=== PATIENT | female | born 1960 | race Caucasian/White ===

== ENCOUNTER 2017-01-19 18:03 | Emergency (ER) | payer OTHER ==
[~2017-01-19] VITALS: Ht 157.5 cm; Wt 107.3 kg
[2017-01-19 18:07] VITALS: BP 160/90; PULSE 76; RESP 16; TEMP 97.8; O2SAT 95
[2017-01-19] MEDS ORDERED: ASPI81CH7 CHEW (18:20)
[2017-01-19] MEDS ORDERED: METO50TA11 PO (18:20)
[2017-01-19] MEDS ORDERED: DEXAMETHASONE SOD PHOS 4 MG/ML VIAL IM ONE (18:30)
[2017-01-19] MEDS ORDERED: RESP: ALBUTEROL 2.5 MG/IPRATROPIUM 0.5 MG NEB (SCH) INH ONE (18:30)
--- NOTE | 2017-01-19 18:31 | PD ---
HPI Chief Complaint: Cold / Flu Symptoms Time Seen by Provider: 18:31 Travel History International Travel<30 days: No Contact w/Intl Traveler<30days: No Traveled to known affect area: No History of Present Illness HPI 56-year-old female presents to the emergency department for evaluation of cough for 2 weeks. Patient was previously on amoxicillin for 10 days, and states that her symptoms did get better, but worsened when she was off the antibiotic. She at a fever 1 week ago, but has not had any fever since. She denies any chest pain or shortness of breath. Patient does report history of hypertension , [place]. She is currently on metoprolol and aspirin daily. She denies any abdominal pain. No nausea or vomiting. She reports history of pneumonia and bronchitis. PFSH Past Medical History Hx Anticoagulant Therapy: Yes (BABY ASA DAILY) Cancer: Yes (LUNG (RESOLVED)) Cardiovascular Problems: Yes (CA TIMES 2, HTN ) High Cholesterol: Yes Cerebrovascular Accident: Yes (CVA TIMES 2 ) Coronary Artery Disease: Yes Diabetes: No Hypertension: Yes Respiratory: Yes Myocardial Infarction: Yes Pneumonia: Yes Tetanus Vaccination: < 5 Years Influenza Vaccination: Yes ?: Not Past Surgical History Appendectomy: Yes Section: Yes Other Surgery: Yes (LEFT BREAST BIOPSY) Social History Alcohol Use: No Tobacco Use: No Substance Use: No Allergies-Medications (Allergen,Severity, Reaction): Coded Allergies: No Known Allergies (Unverified , 01/19/17) Reported Meds & Prescriptions Reported Meds & Active Scripts Active Ventolin Hfa 18 GM Inh (Albuterol Sulfate) 90 Mcg/Act Aer 1 Puff INH Q4H PRN Prednisone 20 Mg Tab 40 Mg PO DAILY 4 Days Zithromax Z-Evert (Azithromycin) 250 Mg Dspk 250 Mg PO DIRECTED 500 MG (2 tabs) day 1, then 1 tab days 2-5. Reported Metoprolol Succinate ER 24 HR (Metoprolol Succinate) 50 Mg Tab 50 Mg PO DAILY Aspirin Children's (Aspirin) 81 Mg Chew 81 Mg CHEW DAILY Review of Systems Except as stated in HPI: all other systems reviewed are Neg Physical Exam Narrative GENERAL: Well-nourished, well-developed female patient, ambulatory. Afebrile. SKIN: Focused skin assessment warm/dry. HEAD: Normocephalic. Atraumatic. ENT: Mucosa pink and moist. No erythema or exudates. No uvular edema. No uvular , palatal, or tonsillar deviation. Airway patent. Nasal turbinates appear normal without nasal blood, purulent drainage or septal hematoma. Bilateral tympanic membranes are clear without erythema or perforation. EYES: No scleral icterus. No injection or drainage. NECK: Supple, trachea midline. No JVD or lymphadenopathy. CARDIOVASCULAR: Regular rate and rhythm without murmurs, gallops, or rubs. RESPIRATORY: Breath sounds equal bilaterally. No accessory muscle use. Lungs sounds clear to auscultation. Dry cough noted. GASTROINTESTINAL: Abdomen soft, non-tender, nondistended. MUSCULOSKELETAL: No cyanosis, or edema. BACK: Nontender without obvious deformity. No CVA tenderness. Data Data Last Documented VS Vital Signs Date Time Temp Pulse Resp B/P Pulse Ox O2 Delivery O2 Flow Rate FiO2 01/19/17 18:07 97.8 76 16 160/90 95 Orders Chest, Single Ap (01/19/17 18:30) Albuterol-Ipratropium Neb (Duoneb Neb) (01/19/17 18:30) Dexamethasone Inj (Decadron Inj) (01/19/17 18:30) MDM Medical Decision Making Medical Screen Exam Complete: Yes Emergency Medical Condition: Yes Medical Record Reviewed: Yes Interpretation(s) chest x-ray - Chest x-ray - CONCLUSION: 1. Cardiomegaly. Tortuous aorta. No focal infiltrate or effusion. Surgical clips right axilla. Differential Diagnosis Bronchitis versus pneumonia versus URI Narrative Course 56-year-old female presents to the emergency department for evaluation of cough for 2 weeks. It did get better while on amoxicillin, but worsened with amoxicillin was done. Patient appears well on exam. Her vital signs are stable. Patient does have dry cough noted. Patient is given DuoNeb 1 and dexamethasone 8 mg IM. Chest x-ray is ordered and pending. Chest x-ray shows no acute infiltrate or effusion. Patient states she feels much better after DuoNeb and dexamethasone. Patient will be discharged prescription for azithromycin, prednisone, albuterol inhaler. She is encouraged to follow with her primary care physician. She is to return immediately to the emergency department for any acute worsening of symptoms. Patient verbalizes agreement and understanding. The patient was discharged in stable condition with instructions, including return instructions and follow up instructions. Diagnosis Primary Impression: Bronchitis Referrals: Primary Care Physician call for appointment Patient Instructions: Acute Bronchitis (ED), General Instructions Additional Instructions: Take antibiotic as directed until gone. Use albuterol inhaler as directed as needed for shortness breath/wheezing. Take prednisone as directed. Start this tomorrow. AFollow-up with your primary care physician. Return to the emergency department for any acute worsening of symptoms. Med/Other Pt SpecificInfo: Prescription(s) given Scripts Albuterol 18 GM Inh (Ventolin Hfa 18 GM Inh)90 Mcg/Act Aer1 Puff INH Q4H PRN ( SHORTNESS OF BREATH) #1 INHALER Ref 0 Prov:Gloria Hurd 01/19/17 Prednisone 20 Mg Tab40 Mg PO DAILY 4 Days Ref 0 Prov:Gloria Hurd 01/19/17 Azithromycin (Zithromax Z-Evert)250 Mg [id number] Mg PO DIRECTED #1 DSPK Ref 0 500 MG (2 tabs) day 1, then 1 tab days 2-5. Prov:Gloria Hurd 01/19/17 Disposition: 01 DISCHARGE HOME Condition: Stable Gloria Hurd January 19, 2017 18:31
--- NOTE | 2017-01-19 19:47 | RADHPO ---
EXAM DATE/TIME: 01/19/2017 19:15 [facility] COMPARISON: No previous studies available for comparison. INDICATIONS : Wheezing and productive cough for two weeks. MEDICAL HISTORY : None. SURGICAL HISTORY : None. ENCOUNTER: Initial ACUITY: 2 weeks PAIN SCORE: 0/10 LOCATION: Bilateral chest FINDINGS: A single view of the chest demonstrates the lungs to be symmetrically aerated without evidence of mas s, infiltrate or effusion. The cardiomediastinal contours are prominent. Osseous structures are inta ct. CONCLUSION: 1. Cardiomegaly. Tortuous aorta. No focal infiltrate or effusion. Surgical clips right axilla. Dex Flores MD on January 19, 2017 at 19:45 Board Certified Radiologist. This report was verified electronically.
[2017-01-19] MEDS ORDERED: VENTAER INH ×2 (19:59→20:23)
[2017-01-19] MEDS ORDERED: ZITHTAB PO ×2 (19:59→20:23)
[2017-01-19] MEDS ORDERED: PRED20 PO ×2 (19:59→20:23)
== END 2017-01-19 20:13 | disposition home or self-care (01) ==
LOC: PHEFT 18:03
DX: J40 Bronchitis, not specified as acute or chronic (principal); E78.00 Pure hypercholesterolemia, unspecified; I25.10 Atherosclerotic heart disease of native coronary artery without angina pectoris; I10 Essential (primary) hypertension; I25.2 Old myocardial infarction; Z86.73 Personal history of transient ischemic attack (TIA), and cerebral infarction without residual deficits
CPT/HCPCS: 71010; 94664; 96372; 99283; J1100